=== PATIENT | female | born 1970 | race Caucasian/White ===

== ENCOUNTER 2018-04-23 05:45 | Day surgery (SDC) | payer BC ==
[~2018-04-23] VITALS: Ht 170.2 cm; Wt 97.1 kg
[2018-04-23] MEDS ORDERED: CEFAZOLIN SOD 1 GM in D5W 50 ML IV ONE (07:00)
[2018-04-23] MEDS ORDERED: PROPOFOL 200MG/ 20ML VIAL (DIPRIVAN) IV ONE (07:40)
[2018-04-23] MEDS ORDERED: NEOSTIGMINE METHYLSULFATE 1 MG/ML, 10 ML VIAL IVP ONE (07:40)
[2018-04-23] MEDS ORDERED: SEVOFLURANE 15 MIN GAS INH ONE (07:40)
[2018-04-23] MEDS ORDERED: LR 1,000 ML IV.SOLN IV ONE (07:40)
[2018-04-23] MEDS ORDERED: MIDAZOLAM HCL 5 MG/5 ML VIAL IVP ONE (07:40)
[2018-04-23] MEDS ORDERED: fentaNYL CITRATE 250 MCG/5 ML AMP IV ONE (07:40)
[2018-04-23] MEDS ORDERED: GLYCOPYRROLATE 0.2 MG/ML VIAL IJ ONE (07:40)
[2018-04-23] MEDS ORDERED: ONDANSETRON HCL 4 MG/2 ML VIAL IVP ONE (07:40)
[2018-04-23] MEDS ORDERED: ROCURONIUM BROMIDE 10 MG/ML (ZEMURON) IV ONE (07:40)
[2018-04-23] MEDS ORDERED: BUPIVACAINE /PF 0.25% 30 ML VIAL INJ ONE (07:40)
[2018-04-23 07:42] LABS: HCG,QUAL RESULT NEGATIVE (NEGATIVE)
[2018-04-23] MEDS ORDERED: IOHEXOL 50 ML IV ONE (07:47)
[2018-04-23] MEDS ORDERED: LR 1,000 ML IV SCH (08:09)
[2018-04-23] MEDS ORDERED: MORPHINE 4 MG/ML INJ. SYRINGE IVP PRN ×3 (08:15)
[2018-04-23] MEDS ORDERED: METOCLOPRAMIDE HCL 10 MG/2 ML VIAL IVP PRN (08:15)
[2018-04-23] MEDS ORDERED: D5/0.45 NS 1,000 ML IV SCH (08:41)
[2018-04-23] MEDS ORDERED: HYDROcodone/ACETAMIN 5-325 MG TAB (NORCO/ VICODIN) PO PRN ×2 (08:45)
[2018-04-23] MEDS ORDERED: HYDROmorphone 1 MG INJ. 1 MG/ML AMPUL IVP PRN (08:45)
[2018-04-23] MEDS ORDERED: METOCLOPRAMIDE HCL 10 MG/2 ML VIAL ONE (09:46)
[2018-04-23] MEDS ORDERED: HYDROcodone/ACETAMIN 5-325 MG TAB (NORCO/ VICODIN) ONE (10:45)
[2018-04-23 12:50] VITALS: BP_SYST 120
== END 2018-04-23 12:00 | disposition home or self-care (01) ==
LOC: SMU 05:45 → SDS 05:45
PROVIDERS: ATTEND Colon & Rectal Surgery
DX: K80.10 Calculus of gallbladder with chronic cholecystitis without obstruction (principal); E66.3 Overweight; Z98.890 Other specified postprocedural states; E66.9 Obesity, unspecified; Z79.899 Other long term (current) drug therapy
CPT/HCPCS: 47563; 74300; 84703; 88304; C1727; C1758; J0690; J2250; J2405; J2704; J2710; J2765; J3010; J3490 ×2; J7060; J7120; Q9967; 76000

== ENCOUNTER 2018-04-24 00:33 | Emergency (ER) | payer BC ==
[~2018-04-24] VITALS: Ht 167.6 cm; Wt 97.1 kg
[2018-04-24 01:27] VITALS: BP_SYST 131
--- NOTE | 2018-04-24 02:04 | NUR ---
Patient to ER bed 06 to gown for evaluation. Side rails up. Report received from CHARLENE Thomas
--- NOTE | 2018-04-24 02:10 | NUR ---
Patient ambulatory to ED a/o x 4 with c/o ABD pain w/ N/V. Patient underwent gallbladder Sx on 04/23. Returned 12 hours post op with c/o RUQ ABD pain and bile like emesis. Afebrile. Incision sites intact. ABD nondistended.
--- NOTE | 2018-04-24 02:51 | NUR ---
ER at bedside examining patient.
--- NOTE | 2018-04-24 02:57 | NUR ---
medicated with Zofran PO. Patient tolerated well.
[2018-04-24] MEDS ORDERED: ONDANSETRON 4 MG ODT TAB PO ONE (03:00)
--- NOTE | 2018-04-24 03:23 | NUR ---
Patient reports no longer being nauseous requesting discharge papers. notified.
[2018-04-24 03:38] LABS: BASOPHILS % (AUTO) 0.1 % (0.0-2.0); HEMATOCRIT 41.4 % (36-48); HEMOGLOBIN 14.3 g/dL (12.0-16.0); LYMPHOCYTES # (AUTO) 0.8 K/uL (1.0-5.5); LYMPHOCYTES % (AUTO) 6.7 % (20.5-51.5); MEAN CORPUSCULAR HEMOGLOBIN 30 pg (27-31); MEAN CORPUSCULAR HGB CONC 34 % (32-36); MEAN CORPUSCULAR VOLUME 87 fL (79.0-98.0); MONOCYTES # (AUTO) 0.4 K/uL (0.0-1.0); NEUTROPHILS # (AUTO) 11.4 K/uL (1.8-7.7); NEUTROPHILS % (AUTO) 90.2 % (40.0-70.0); PLATELET COUNT (AUTO) 452 K/uL (130-430); RED BLOOD CELL COUNT(AUTO) 4.77 MIL/uL (4.2-6.2); RED CELL DISTRIBUTION WIDTH 12.1 % (9.0-15.0); WHITE BLOOD COUNT (AUTO) 12.6 K/uL (4.8-10.8)
[2018-04-24 03:56] LABS: CALCIUM 9.3 mg/dL (8.4-11.0); CREATININE 0.69 mg/dL (0.55-1.30); POTASSIUM 3.7 mmol/L (3.5-5.1)
[2018-04-24 04:01] LABS: ALBUMIN 4.2 g/dL (3.4-4.8)
--- NOTE | 2018-04-24 04:03 | NUR ---
Urine specimen collected and sent to lab for analyzing
[2018-04-24 04:16] LABS: BILIRUBIN,URINE NEGATIVE (NEGATIVE); BLOOD, URINE 2+ (NEGATIVE); CLARITY/URINE CLEAR (CLEAR); COLOR,URINE YELLOW (YELLOW); GLUCOSE,URINE NEGATIVE (NEGATIVE); KETONES,URINE NEGATIVE (NEGATIVE); LEUKOCYTE ESTERASE ,URINE TRACE (NEGATIVE); NITRITE, URINE NEGATIVE (NEGATIVE); PROTEIN URINE NEGATIVE (NEGATIVE); UROBILINOGEN,URINE 0.2 (0.2-1.0)
[2018-04-24 04:18] VITALS: BP_SYST 129
--- NOTE | 2018-04-24 04:18 | NUR ---
Patient given written and verbal discharge instructions and verbalizes understanding. ER MD discussed with patient the results and treatment provided. Patient in stable condition. ID arm band removed. Rx of Zofran given. Patient educated on pain management and to follow up with PMD. Pain Scale 2/10 tolerable for patient. Opportunity for questions provided and answered. Medication side effect fact sheet provided.
[2018-04-24 05:11] LABS: BACTERIA,URINE FEW /HPF (None Seen)
== END 2018-04-24 04:18 | disposition home or self-care (01) ==
LOC: SED 00:33
DX: R10.11 Right upper quadrant pain (principal); R11.2 Nausea with vomiting, unspecified; Z90.49 Acquired absence of other specified parts of digestive tract; Z98.51 Tubal ligation status
CPT/HCPCS: 36415; 80053; 81000; 83690; 85025; 87086; 99283; Q0162

== ENCOUNTER 2018-04-28 13:49 | Inpatient (IN) | payer BC ==
[~2018-04-28] VITALS: Ht 170.2 cm; Wt 89.8 kg
[2018-04-28 13:55] VITALS: BP_SYST 147
[2018-04-28] MEDS ORDERED: NACL 0.9% 1,000 ML IV ONE ×2 (14:32→17:45)
[2018-04-28] MEDS ORDERED: ONDANSETRON HCL 4 MG/2 ML VIAL IVP ONE (14:45)
[2018-04-28] MEDS ORDERED: MORPHINE 4 MG/ML INJ. SYRINGE IVP ONE ×2 (14:45→16:15)
[2018-04-28 14:55] LABS: BASOPHILS # (AUTO) 0.1 K/uL (0.0-0.2); BASOPHILS % (AUTO) 0.5 % (0.0-2.0); EOSINOPHILS % (AUTO) 0.3 % (0.0-4.0); HEMATOCRIT 46.2 % (36-48); HEMOGLOBIN 15.6 g/dL (12.0-16.0); LYMPHOCYTES # (AUTO) 1.1 K/uL (1.0-5.5); LYMPHOCYTES % (AUTO) 8.1 % (20.5-51.5); MEAN CORPUSCULAR HEMOGLOBIN 30 pg (27-31); MEAN CORPUSCULAR HGB CONC 34 % (32-36); MEAN CORPUSCULAR VOLUME 89 fL (79.0-98.0); MONOCYTES # (AUTO) 0.6 K/uL (0.0-1.0); NEUTROPHILS % (AUTO) 87.1 % (40.0-70.0); PLATELET COUNT (AUTO) 461 K/uL (130-430); WHITE BLOOD COUNT (AUTO) 13.8 K/uL (4.8-10.8)
[2018-04-28 15:06] LABS: CALCIUM 9.2 mg/dL (8.4-11.0); CREATININE 0.73 mg/dL (0.55-1.30); POTASSIUM 3.2 mmol/L (3.5-5.1)
[2018-04-28 15:10] LABS: ALBUMIN 3.8 g/dL (3.4-4.8); TOTAL BILIRUBIN 1.5 mg/dL (0.0-1.0)
[2018-04-28] MEDS ORDERED: MULT-1089 PO (16:21)
[2018-04-28] MEDS ORDERED: PIPERACILLIN/TAZO 3.375 GM in NS 50 ML IV ONE (17:45)
[2018-04-28] MEDS ORDERED: VANCOMYCIN HCL 1,000 MG in NS 250 ML IV ONE (17:45)
[2018-04-28] MEDS ORDERED: ACETAMINOPHEN 325 MG TABLET PO PRN (17:45)
[2018-04-28] MEDS ORDERED: MORPHINE 4 MG/ML INJ. SYRINGE IVP PRN (17:45)
[2018-04-28 18:30] VITALS: BP_SYST 142
[2018-04-28 18:55] LABS: INR 1.1 (0.8-1.2)
[2018-04-28] MEDS: NACL 0.9% 1,000 ML IV SCH (19:16)
[2018-04-28 20:00] VITALS: BP_SYST 158
[2018-04-28] MEDS ORDERED: LEVOFLOXACIN 500 MG/D5W 100 ML IV ONE (20:16)
[2018-04-28] MEDS ORDERED: VANCOMYCIN HCL 1000 MG/VIAL IV ONE (20:17)
[2018-04-28] MEDS ORDERED: PIPERACILLIN/TAZOBACTAM 3.375 GM/VIAL (ZOSYN) IV ONE (20:17)
[2018-04-28] MEDS: LEVOFLOXACIN 500 MG/D5W 100 ML IV SCH (22:01)
[2018-04-28] MEDS: metroNIDAZOLE 500 MG TABLET PO SCH (23:01)
[2018-04-28] MEDS: ONDANSETRON HCL 4 MG/2 ML VIAL IVP PRN (23:10)
[2018-04-29] VITALS: BP_SYST 158
[2018-04-29] MEDS: metroNIDAZOLE 500 MG TABLET PO SCH ×3 (03:02→20:05)
[2018-04-29 07:35] VITALS: BP_SYST 134
[2018-04-29 08:00] LABS: BASOPHILS % (AUTO) 0.3 % (0.0-2.0); EOSINOPHILS # (AUTO) 0.1 K/uL (0.0-0.4); EOSINOPHILS % (AUTO) 0.8 % (0.0-4.0); HEMATOCRIT 42.4 % (36-48); HEMOGLOBIN 14.6 g/dL (12.0-16.0); LYMPHOCYTES % (AUTO) 13.9 % (20.5-51.5); MEAN CORPUSCULAR HEMOGLOBIN 30 pg (27-31); MEAN CORPUSCULAR HGB CONC 34 % (32-36); MEAN CORPUSCULAR VOLUME 88 fL (79.0-98.0); MONOCYTES # (AUTO) 0.8 K/uL (0.0-1.0); MONOCYTES % (AUTO) 5.7 % (1.7-9.3); NEUTROPHILS # (AUTO) 11.6 K/uL (1.8-7.7); NEUTROPHILS % (AUTO) 79.3 % (40.0-70.0); PLATELET COUNT (AUTO) 546 K/uL (130-430); RED BLOOD CELL COUNT(AUTO) 4.84 MIL/uL (4.2-6.2); RED CELL DISTRIBUTION WIDTH 11.9 % (9.0-15.0); WHITE BLOOD COUNT (AUTO) 14.5 K/uL (4.8-10.8)
[2018-04-29 08:16] LABS: ALBUMIN 3.3 g/dL (3.4-4.8); CALCIUM 8.8 mg/dL (8.4-11.0); CREATININE 0.68 mg/dL (0.55-1.30); POTASSIUM 3.1 mmol/L (3.5-5.1); TOTAL BILIRUBIN 1.4 mg/dL (0.0-1.0)
[2018-04-29] MEDS: PANTOPRAZOLE SODIUM 40 MG/VIAL (PROTONIX) IVP SCH (09:37)
[2018-04-29] MEDS: ONDANSETRON HCL 4 MG/2 ML VIAL IVP PRN ×2 (09:37→20:51)
[2018-04-29] MEDS: NACL 0.9% 1,000 ML IV SCH ×2 (09:45→20:06)
[2018-04-29 16:15] VITALS: BP_SYST 141
[2018-04-29] MEDS: LEVOFLOXACIN 500 MG/D5W 100 ML IV SCH (20:06)
[2018-04-29 20:59] VITALS: BP_SYST 151
[2018-04-30] VITALS: BP_SYST 118
[2018-04-30] MEDS: metroNIDAZOLE 500 MG TABLET PO SCH ×2 (04:24→12:00)
[2018-04-30] MEDS: NACL 0.9% 1,000 ML IV SCH ×2 (04:24→09:45)
[2018-04-30 07:08] LABS: BASOPHILS % (AUTO) 0.2 % (0.0-2.0); EOSINOPHILS # (AUTO) 0.3 K/uL (0.0-0.4); EOSINOPHILS % (AUTO) 3.1 % (0.0-4.0); HEMATOCRIT 39.3 % (36-48); HEMOGLOBIN 13.1 g/dL (12.0-16.0); LYMPHOCYTES # (AUTO) 1.8 K/uL (1.0-5.5); LYMPHOCYTES % (AUTO) 18.9 % (20.5-51.5); MEAN CORPUSCULAR HEMOGLOBIN 30 pg (27-31); MEAN CORPUSCULAR HGB CONC 33 % (32-36); MEAN CORPUSCULAR VOLUME 89 fL (79.0-98.0); MONOCYTES # (AUTO) 0.6 K/uL (0.0-1.0); MONOCYTES % (AUTO) 6.6 % (1.7-9.3); NEUTROPHILS # (AUTO) 6.9 K/uL (1.8-7.7); NEUTROPHILS % (AUTO) 71.2 % (40.0-70.0); PLATELET COUNT (AUTO) 443 K/uL (130-430); RED CELL DISTRIBUTION WIDTH 11.6 % (9.0-15.0); WHITE BLOOD COUNT (AUTO) 9.6 K/uL (4.8-10.8)
[2018-04-30] MEDS: PANTOPRAZOLE SODIUM 40 MG/VIAL (PROTONIX) IVP SCH (08:08)
[2018-04-30 08:15] VITALS: BP_SYST 150
[2018-04-30 08:24] LABS: CALCIUM 7.9 mg/dL (8.4-11.0); CREATININE 0.56 mg/dL (0.55-1.30); POTASSIUM 2.8 mmol/L (3.5-5.1); TOTAL BILIRUBIN 1.3 mg/dL (0.0-1.0)
[2018-04-30] MEDS ORDERED: POTASSIUM CHLORIDE 20 MEQ TAB.PRT.SR PO ONE (11:15)
[2018-04-30 12:00] VITALS: BP_SYST 144
[2018-04-30 16:22] VITALS: BP_SYST 158
[2018-04-30 18:44] VITALS: BP_SYST 158
== END 2018-04-30 19:00 | disposition home or self-care (01) | DRG 446 ==
LOC: SED 13:49 → SMU 17:32
PROVIDERS: ADMIT Internal Medicine; ATTEND Internal Medicine
DX: K80.51 Calculus of bile duct without cholangitis or cholecystitis with obstruction (principal); E87.6 Hypokalemia; R74.0 Nonspecific elevation of levels of transaminase and lactic acid dehydrogenase [LDH]; Z98.51 Tubal ligation status; Z90.49 Acquired absence of other specified parts of digestive tract
CPT/HCPCS: 36415; 74181; 80053; 83605; 83690-TC; 85025; 85610-TC; 85730-TC; 87040-TC; 87081; 96361; 96374; 96375; 96376; 99285; C9113; J1956; J2270; J2405; J2543; J3370; J7030; J7050